=== PATIENT | female | born 1960 ===

== ENCOUNTER 2017-08-04 18:39 | Outpatient (CLI) | payer OTHER | END 2017-08-04 19:02 | disposition home or self-care (01) | LOC: RAD 18:39 | DX: R68.84 Jaw pain (principal); K12.2 Cellulitis and abscess of mouth ==

== ENCOUNTER 2017-08-30 13:34 | Outpatient (CLI) | payer OTHER | END 2017-08-30 17:00 | disposition home or self-care (01) | LOC: RAD 13:34 | DX: M79.672 Pain in left foot (principal) ==

== ENCOUNTER 2023-04-16 10:27 | Outpatient (CLI) | payer OTHER | END 2023-04-16 10:44 | disposition home or self-care (01) | LOC: TOM 10:27 | PROVIDERS: ATTEND Family Medicine | DX: R06.02 Shortness of breath (principal); R07.89 Other chest pain ==